=== PATIENT | female | born 1970 | race Caucasian/White ===

== ENCOUNTER 2020-05-30 18:44 | Emergency (ER) | payer SELFPAY ==
--- NOTE | 2020-05-30 19:54 | ER Document Report ---
HPI - HPI Patient complains to provider of: medication refill Time Seen by Provider: 05/30/20 19:44 Context: 49-year-old female presents to the emergency room requesting a refill on her Zanaflex. 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 Denies any new trauma or injury. Was able to drive himself to the emergency room. She offers no other concerns or complaints. Also has a history of hypertension, GERD, arthritis, chronic back pain with slipped disks from L4-S1. Bipolar, schizophrenia, dementia. Associated Symptoms: None Exacerbated by: Movement, Walking Relieved by: Denies Similar symptoms previously: No Recently seen / treated by doctor: No - ROS Systems Reviewed and Negative: Yes All other systems reviewed and negative - NEURO Neurology: DENIES: Weakness - RESPIRATORY Respiratory: DENIES: Trouble Breathing - MUSCULOSKELETAL Musculoskeletal: REPORTS: Extremity pain - DERM Skin Color: Normal Skin Problems: None Past Medical History - General Information source: Patient - Social History Smoking Status: Current Every Day Smoker Frequency of alcohol use: None Drug Abuse: None Family History: Reviewed & Not Pertinent Vertical Provider Document - CONSTITUTIONAL Agree With Documented VS: Yes Exam Limitations: No Limitations General Appearance: Mild Distress - INFECTION CONTROL TRAVEL OUTSIDE OF THE [place] IN LAST 30 DAYS: No - HEENT HEENT: Atraumatic, Normocephalic - NECK Neck: Normal Inspection, Supple - RESPIRATORY Respiratory: Breath Sounds Normal, No Respiratory Distress - CARDIOVASCULAR Cardiovascular: Regular Rate, Regular Rhythm, No Murmur - MUSCULOSKELETAL/EXTREMETIES Musculoskeletal/Extremeties: FROM - NEURO Level of Consciousness: Awake, Alert, Appropriate Motor/Sensory: No Motor Deficit, No Sensory Deficit Notes: Patient is able to ambulate without difficulty. Steady gait. Neurovascularly intact. - DERM Integumentary: Warm, Dry, No Rash Course - Re-evaluation Re-evalutation: 05/30/20 19:53 We will give patient a 2-week supply of her Zanaflex. She was counseled on the importance of establishing with a primary care physician as soon as possible for management of her chronic health conditions. Patient was given strict return to the emergency room guidelines. Return for any new or worsening symptoms. All questions were answered. Patient verbalized understanding and agrees with plan of care. - Vital Signs Vital signs: Temp Pulse Resp BP Pulse Ox 98.2 F 100 22 H 147/87 H 94 05/30/20 18:50 05/30/20 18:50 05/30/20 18:50 05/30/20 18:50 05/30/20 18:50 - Laboratory Results Critical Laboratory Results Reviewed: No Critical Results - Radiology Results Critical Radiology Results Reviewed: No Critical Results Discharge - Discharge Clinical Impression: Medication refill Chronic leg pain Qualifiers: Laterality: bilateral Qualified Code(s): M79.604 - Pain in right leg Condition: Stable Disposition: HOME, SELF-CARE Instructions: Leg Pain Nonspecific ([facility]) Additional Instructions: Establish with a primary care physician as soon as possible for management of your chronic medical conditions. Zanaflex as prescribed. Return to the emergency room for any new or worsening symptoms. Prescriptions: Tizanidine HCl [Zanaflex 4 Mg Tablet] 4 mg PO QHS #14 tablet Referrals: ARMANDO KELLEY MD [COMMUNITY BASED STAFF] - Follow up as needed
[2020-05-30 20:21] VITALS: BP 151/81
== END 2020-05-30 20:18 | disposition home or self-care (01) ==
LOC: ER 18:44
DX: Z76.0 Encounter for issue of repeat prescription (principal); G89.29 Other chronic pain; M79.604 Pain in right leg; I10 Essential (primary) hypertension; F17.200 Nicotine dependence, unspecified, uncomplicated
CPT/HCPCS: 99283